=== PATIENT | male | born 1930 | race Caucasian/White ===

== ENCOUNTER → 2017-09-05 | Outpatient (CLI) | payer OTHER ==
--- NOTE | ~2017-09-05 | 2DMMODE ---
[facility] [address] [place] [address] 2 D/M-MODE ECHOCARDIOGRAM Name: TONJARACHEL Room #: [facility] [id number] Admission: 09/05/17 Attend Phys: Orlando Tomas, Discharge: Date of : 32 Date of Service: 09/05/17 1232 Report #: [id number] THIS REPORT FOR: //name// APPROVED REPORT Study performed: 09/05/2017 11:13:01 EXAM: Comprehensive 2D, Doppler, and color-flow Echocardiogram Patient Location: Out-Patient Room #: Echo lab 2 Status: routine BSA: 1.86 HR: 72 bpm BP: 144/86 mmHg Other Information Study Quality: Good Indications CAD Chest Pain 2D Dimensions RVDd: 41.55 mm LVEF(%): 59.25 (>50%) IVSd: 11.03 (7-11mm) LVOT Diam: 19.53 (18-24mm) LVDd: 53.44 mm PWd: 11.26 (7-11mm) Ascending Ao: 27.22 (22-36mm) LVDs: 36.49 (25-40mm) Aortic Root: 31.23 mm IVC: 24.00 mm Garcia's LVEF: 59.25 % Volumes Left Atrial Volume (Systole) Single Plane 4CH: 85.20 mL Single Plane 2CH: 80.93 mL LA ESV Index: 49.00 mL/m2 Aortic Valve AoV Peak Cornel.: 1.45 m/s AO Peak Gr.: 8.43 mmHg LVOT Max P.15 mmHg LVOT Max V: 0.89 m/s PAL Vmax: 1.83 cm2 Mitral Valve E/A Ratio: 1.2 MV Decel. Time: 167.85 ms [facility] [place] [address] 2 D/M-MODE ECHOCARDIOGRAM Name: RACHEL EVANGELISTA Room #: REG [facility].#: [id number] Admission: 09/05/17 Attend Phys: Orlando Tomas, Discharge: Date of : 32 Date of Service: 09/05/17 1232 Report #: [id number] MV E Max Cornel.: 1.12 m/s MV A Cornel.: 0.91 m/s MV PHT: 48.68 ms IVRT: 92.27 ms Pulmonary Valve PV Peak Cornel.: 1.27 m/s PV Peak Gr.: 6.50 mmHg Pulmonary Vein P Vein S: 0.46 m/s P Vein A: 0.25 m/s P Vein D: 0.58 m/s P Vein A Dur.: 115.3 msec P Vein S/D Ratio: 0.79 Tricuspid Valve TR Peak Cornel.: 2.78 m/s TR Peak Gr.: 30.82 mmHg PA Pressure: 41.00 mmHg Left Ventricle The left ventricle is normal size. There is normal LV segmental wall motion. There is normal left ventricular wall thickness. The left ventricular systolic function is normal. The left ventricular ejection fraction is within the normal range. LVEF is 55-60%. Left ventricular filling pattern is normal for age. Right Ventricle Right ventricle is at the upper limits of normal. The right ventricular systolic function is normal. Right ventricular systolic function could not be assessed. Atria Left atrium is dilated. Right atrium is at the upper limits of normal. Aortic Valve Aortic valve is calcified. Trace aortic regurgitation. There is no aortic valvular stenosis. Mitral Valve Moderate mitral annular calcification Moderate mitral regurgitation. No evidence of mitral valve stenosis. No evidence of mitral valve stenosis. Tricuspid Valve The tricuspid valve is normal in structure. There is trace to mild tricuspid regurgitation. Estimated PAP 40 mmHg. There is mild [facility] [address] [place] [address] 2 D/M-MODE ECHOCARDIOGRAM Name: RACHEL EVANGELISTA Room #: [facility] [id number] Admission: 09/05/17 Attend Phys: Orlando Tomas, Discharge: Date of : 32 Date of Service: 09/05/17 1232 Report #: [id number] pulmonary hypertension. Pulmonic Valve The pulmonary valve is normal in structure. Trace to mild pulmonic regurgitation. Great Vessels The aortic root is normal in size. IVC is dilated and collapses >50% with inspiration. Pericardium There is no pericardial effusion. <Conclusion> The left ventricular systolic function is normal. There is normal LV segmental wall motion. Left atrium is dilated. Aortic valve is calcified. Trace aortic regurgitation, no stenosis. Moderate mitral annular calcification. Moderate mitral regurgitation. There is trace to mild tricuspid regurgitation. Estimated pulmonary artery pressure of 40 mmHg. There is no pericardial effusion. <ELECTRONICALLY SIGNED> By: Orlando Tomas MD, FACC 09/05/17 1232 1232 123 Orlando Tomas MD, FACC /INF
== END ==
LOC: ULTRA 09:43 → CV 09:43
DX: I25.10 Atherosclerotic heart disease of native coronary artery without angina pectoris (principal); I34.0 Nonrheumatic mitral (valve) insufficiency; I70.0 Atherosclerosis of aorta; I70.8 Atherosclerosis of other arteries; R09.89 Other specified symptoms and signs involving the circulatory and respiratory systems

== ENCOUNTER → 2019-09-08 | Outpatient (CLI) | payer OTHER | LOC: SJCVC 12:14 | DX: R94.31 Abnormal electrocardiogram [ECG] [EKG] (principal); I25.708 Atherosclerosis of coronary artery bypass graft(s), unspecified, with other forms of angina pectoris; I25.5 Ischemic cardiomyopathy; E78.5 Hyperlipidemia, unspecified; I65.23 Occlusion and stenosis of bilateral carotid arteries; I73.9 Peripheral vascular disease, unspecified; K21.9 Gastro-esophageal reflux disease without esophagitis; E78.00 Pure hypercholesterolemia, unspecified; Z79.82 Long term (current) use of aspirin; Z79.899 Other long term (current) drug therapy; Z87.891 Personal history of nicotine dependence; Z95.1 Presence of aortocoronary bypass graft ==